=== PATIENT | female | born 1990 | race African-American/Black ===

== ENCOUNTER 2018-01-29 11:35 | Emergency (ER) | payer OTHER ==
[~2018-01-29] VITALS: Ht 170.2 cm; Wt 60.8 kg
[2018-01-29] MEDS ORDERED: IBUPROFEN 600 MG TAB PO STA (12:08)
[2018-01-29] MEDS ORDERED: DEXAMETHASONE SOD PHOS INJ 4 MG/ML VIAL IM ONE (13:00)
== END 2018-01-29 13:00 | disposition home or self-care (01) ==
LOC: FSED 11:35
DX: R05 Cough (principal); J00 Acute nasopharyngitis [common cold]; J30.2 Other seasonal allergic rhinitis; J02.9 Acute pharyngitis, unspecified
CPT/HCPCS: 87400; 99283; J1100